=== PATIENT | female | born 1965 | race Caucasian/White ===

== ENCOUNTER 2016-06-20 09:15 | Inpatient (IN) | payer BC, OTHER ==
[2016-06-20] VITALS (10 sets, daily range): BP systolic 126–154; BP diastolic 76–94; PULSE 81–171; RESP 16–28; TEMP 98.3–99.2; O2SAT 97–100
[~2016-06-20] VITALS: Ht 162.6 cm; Wt 61.0 kg
[~2016-06-20 09:15] MED LIST: MEDR4PAK3 PO; PERM5CRE TOP
[2016-06-20] MEDS ORDERED: SODIUM CHLOR 0.9% 1000 ML INJ 1,000 ML IV SCH (09:36)
[2016-06-20] MEDS ORDERED: LORazepam 2 MG/ML VIAL IV PUSH ONE ×2 (09:45)
[2016-06-20] MEDS ORDERED: SODIUM CHLORIDE 0.9% FLUSH 10 ML FLUSH IV FLUSH PRN ×2 (09:45→13:45)
[2016-06-20] MEDS ORDERED: SODIUM CHLOR 0.9% 1000 ML INJ 1,000 ML IV ONE ×2 (09:45)
[2016-06-20] MEDS ORDERED: ONDANSETRON HCL 4 MG/2 ML VIAL IV PUSH ONE (09:45)
--- NOTE | 2016-06-20 10:05 | PD ---
HPI Chief Complaint: GI Complaint Time Seen by Provider: 09:33 Travel History International Travel<30 days: No Contact w/Intl Traveler<30days: No Traveled to known affect area: No History of Present Illness HPI Is a 51 year-old woman who presents to the emergency department complaining of nausea and vomiting for the past week. She is a history of daily alcohol use. Denies any history of withdrawal symptoms. She has had trouble with low potassium in the past as well as peptic ulcer disease. She states for the past year or so she's had trouble with intermittent episodes of nausea and vomiting. The sepsis or about a week ago. Progressively worse. She's had worsening vomiting, and inability to tolerate any by mouth. She does not really drinking liquids. She's cut back on her alcohol drinking significantly. Today she's had come to the emergency department. On the way she started getting clenching in her hands and clenching in her face with spasms. 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 She otherwise has been feeling generally 1 healthy before the onset of these symptoms. She states she does get some occasional abdominal pain when she's retching, mostly in epigastrium, but not otherwise. No other complaints. History Past Medical History Narrative Medical Peptic ulcer disease Low potassium Daily alcohol use Social History Alcohol Use: Yes (3-5 BEERS/DAY) Tobacco Use: Yes (1 ppd) Allergies-Medications (Allergen,Severity, Reaction): Coded Allergies: Augmentin (Verified Allergy, Severe, VOMITING, 06/20/16) Hydrocodone (Verified Allergy, Mild, 06/20/16) PREFERS NOT TO TAKE HYDROCODONE. NO REACTION ALLERGICALLY. Reported Meds & Prescriptions Reported Meds & Active Scripts Active Medrol Dosepak (Methylprednisolone) 4 Mg Donald 4 Mg PO DIRECTED TAKE DIRECTED Elimite (Permethrin) 5 % Cr 60 Gm TOP DIRECTED PATIENT INSTRUCTIONS: THOROUGHLY MASSAGE ELIMITE (PERMETHRIN) 5% CREAM INTO THE SKIN FROM HEAD TO TOE COVERING ALL EXTERNAL BODY PARTS. THE CREAM SHOULD BE REMOVED BY WASHING (SHOWER OR BATH) 8 TO 14 HOURS AFTER APPLICATION. PATIENTS MAY EXPERIENCE ITCHING AFTER TREATMENT AND IS RARELY A SIGN OF TREATMENT FAILURE. Review of Systems Except as stated in HPI: all other systems reviewed are Neg Physical Exam Narrative GENERAL: 51 year-old woman, generally well-appearing, no acute distress. SKIN: Focused skin assessment warm/dry. HEAD: Atraumatic. Normocephalic. EYES: Pupils equal and round. No scleral icterus. No injection or drainage. ENT: No nasal bleeding or discharge. Mucous membranes pink and moist. NECK: Trachea midline. No JVD. CARDIOVASCULAR: Heart rate rapid but regular. RESPIRATORY: No accessory muscle use. Clear to auscultation. Breath sounds equal bilaterally. GASTROINTESTINAL: Abdomen is flat and soft. There is no real tenderness or gross to deep palpation. MUSCULOSKELETAL: No obvious deformities. She keeps her hands clenched and the rest of her extremities are not really flexed are contracted. NEUROLOGICAL: Awake and alert. No obvious cranial nerve deficits. Motor grossly within normal limits. Normal speech. PSYCHIATRIC: Appropriate mood and affect; insight and judgment normal. Data Data Last Documented VS Vital Signs Date Time Temp Pulse Resp B/P Pulse Ox O2 Delivery O2 Flow Rate FiO2 06/20/16 12:08 103 16 140/79 98 Room Air Orders Complete Blood Count With Diff (06/20/16 09:36) Comprehensive Metabolic Panel (06/20/16 09:36) Lipase (06/20/16 09:36) Lactic Acid (06/20/16 09:36) Prothrombin Time / Inr (Pt) (06/20/16 09:36) Act Partial Throm Time (Ptt) (06/20/16 09:36) Urinalysis - C+S If Indicated (06/20/16 09:36) Iv Access Insert/Monitor (06/20/16 09:36) Ecg Monitoring (06/20/16 09:36) Oximetry (06/20/16 09:36) Sodium Chlor 0.9% 1000 Ml Inj (Ns 1000 M (06/20/16 09:36) Sodium Chloride 0.9% Flush (Ns Flush) (06/20/16 09:45) Magnesium (Mg) (06/20/16 09:36) Sodium Chlor 0.9% 1000 Ml Inj (Ns 1000 M (06/20/16 09:45) Sodium Chlor 0.9% 1000 Ml Inj (Ns 1000 M (06/20/16 09:45) Lorazepam Inj (Ativan Inj) (06/20/16 09:45) Ondansetron Inj (Zofran Inj) (06/20/16 09:45) Beta Hydroxybutyrate (Acetone) (06/20/16 09:36) Lorazepam Inj (Ativan Inj) (06/20/16 09:45) Ct Abd/Pel W Iv Contrast(Rout) (06/20/16 ) Iohexol 350 Inj (Omnipaque 350 Inj) (06/20/16 11:47) Us Abdomen Gallbladder (06/20/16 ) Admit Order (Ed Use Only) (06/20/16 ) Labs Laboratory Tests Test 06/20/16 09:48 White Blood Count 7.4 TH/MM3 Red Blood Count 3.68 MIL/MM3 Hemoglobin 13.0 GM/DL Hematocrit 37.8 % Mean Corpuscular Volume 102.8 FL Mean Corpuscular Hemoglobin 35.4 PG Mean Corpuscular Hemoglobin 34.4 % Concent Red Cell Distribution Width 14.4 % Platelet Count 205 TH/MM3 Mean Platelet Volume 9.6 FL Neutrophils (%) (Auto) 49.8 % Lymphocytes (%) (Auto) 43.6 % Monocytes (%) (Auto) 5.9 % Eosinophils (%) (Auto) 0.1 % Basophils (%) (Auto) 0.6 % Neutrophils # (Auto) 3.7 TH/MM3 Lymphocytes # (Auto) 3.2 TH/MM3 Monocytes # (Auto) 0.4 TH/MM3 Eosinophils # (Auto) 0.0 TH/MM3 Basophils # (Auto) 0.0 TH/MM3 CBC Comment DIFF FINAL Differential Comment Prothrombin Time 12.1 SEC Prothromb Time International 1.1 RATIO Ratio Activated Partial 25.0 SEC Thromboplast Time Sodium Level 134 MEQ/L Potassium Level 3.4 MEQ/L Chloride Level 97 MEQ/L Carbon Dioxide Level 17.4 MEQ/L Anion Gap 20 MEQ/L Blood Urea Nitrogen 13 MG/DL Creatinine 1.03 MG/DL Estimat Glomerular Filtration 57 ML/MIN Rate Random Glucose 182 MG/DL Lactic Acid Level 7.5 mmol/L Calcium Level 8.3 MG/DL Magnesium Level 1.0 MG/DL Total Bilirubin 1.5 MG/DL Aspartate Amino Transf 506 U/L (AST/SGOT) Alanine Aminotransferase 218 U/L (ALT/SGPT) Alkaline Phosphatase 378 U/L Total Protein 8.1 GM/DL Albumin 3.6 GM/DL Lipase 82 U/L B-Hydroxybutyrate 0.50 MMOL/L MDM Medical Decision Making Medical Screen Exam Complete: Yes Emergency Medical Condition: Yes Interpretation(s) LABS: CBC remarkable for elevated MCV. CMP remarkable for mildly low potassium, low bicarbonate, anion gap of 20, elevated creatinine, elevated liver enzymes, magnesium of 1.0 Coags unremarkable beta hydroxybutyrate. 0.5 CT abdomen and pelvis: No acute findings. Differential Diagnosis Gastritis, pancreatitis, alcoholic ketoacidosis, alcohol withdrawal, cholecystitis, other Narrative Course Medical decision making INITIAL: 51 year-old woman who presents to the emergency department complaining of nausea vomiting, with rapid heart rate and cleansed hands likely electrolyte abnormality possibly related to AKA, alcohol withdrawal, dehydration. We'll check labs, IV fluid rehydration, reassess. Likely need admission. FINAL: Patient with severe dehydration, lactic acidosis. CT scan shows severe hepatic steatosis. This likely related to alcoholism. Is likely isolation for elevated labs. We'll check liver ultrasound. We'll admit. Diagnosis Primary Impression: Dehydration Additional Impression: Lactic acidosis Beau Austin MD Jun 20, 2016 10:05
[2016-06-20 10:09] LABS: AUTOMATED NEUTROPHIL # 3.7 TH/MM3 (1.8-7.7); BASOPHIL % 0.6 % (0.0-2.0); EOSINOPHIL % 0.1 % (0.0-4.0); HEMATOCRIT 37.8 % (35.0-46.0); HEMO FLAGS DIFF FINAL; LYMPH % 43.6 % (9.0-44.0); LYMPHOCYTE # 3.2 TH/MM3 (1.0-4.8); MEAN CELL VOLUME 102.8 FL (80.0-100.0); MEAN CORPUSCULAR HEMOGLOBIN 35.4 PG (27.0-34.0); MEAN CORPUSCULAR HGB CONC 34.4 % (32.0-36.0); MONO % 5.9 % (0.0-8.0); NEUT % 49.8 % (16.0-70.0); PLATELET COUNT 205 TH/MM3 (150-450); RED BLOOD COUNT 3.68 MIL/MM3 (4.00-5.30); RED CELL DISTRIBUTION WIDTH 14.4 % (11.6-17.2); WHITE BLOOD COUNT 7.4 TH/MM3 (4.0-11.0)
[2016-06-20 10:18] LABS: INTERNATIONAL NORMALIZED RATIO 1.1 RATIO; PROTHROMBIN TIME - PATIENT 12.1 SEC (9.8-11.6)
[2016-06-20 10:28] LABS: ALKALINE PHOSPHATASE 378 U/L (45-117); TOTAL BILIRUBIN ADULT 1.5 MG/DL (0.2-1.0)
[2016-06-20 10:33] LABS: ALT (GPT) 218 U/L (10-53); ANION GAP 20 MEQ/L (5-15); BICARBONATE 17.4 MEQ/L (21.0-32.0); BLOOD UREA NITROGEN 13 MG/DL (7-18); CHLORIDE 97 MEQ/L (98-107); GLOMERULAR FILTRATION RATE 57 ML/MIN (>89); SODIUM (NA) 134 MEQ/L (136-145)
[2016-06-20 10:35] LABS: AST (GOT) 506 U/L (15-37); POTASSIUM 3.4 MEQ/L (3.5-5.1)
[2016-06-20] MEDS ORDERED: IOHEXOL 350 MG/ML 10 ML VIAL (for RAD DIAG) IV ONE (11:47)
--- NOTE | 2016-06-20 12:46 | HHI.HP ---
HPI Service Family Medicine Attending: Dr. Campbell PGY-2: Dr. Cerda PGY-1: Dr. Moreland Primary Care Physician No Primary Care Physician Admission Diagnosis Diagnoses: (1) Dehydration (2) Lactic acidosis (3) Alcohol abuse Chief Complaint: nausea, vomiting International Travel<30 Days: No Contact w/Intl Traveler<30days: No Known Affected Area: No History of Present Illness Patient is a 51 year old female with history of alcohol use who presents to ED for evaluation of nausea and vomiting for the past 2 weeks. She reports that symptoms started suddenly 2 weeks ago and has progressively gotten worse. She has not been able to keep down anything including liquids. She had up to 20 episodes of bilious emesis yesterday. Still has good urine output. However she has not had a BM for the past week. Today, she developed severe cramps in both her hands and calves which prompted her to go to the ED. Both of her hands were clenched and contracted prior to ED arrival. They are better now since she received the IV fluids. No associated abdominal pain, diarrhea, urinary symptoms, rash, or other symptoms. Of note, she reports having similar symptoms about a year ago. She had an EGD and colonoscopy at [facility] and was told she had a peptic ulcer. She did not follow up with anyone after that hospitalization. She does not take any PPI or antacid. In addition, she does have a significant history of alcohol use. She drinks one shot of Fireball and 1-2 beers almost every night for the past 6 months. Last drink was a couple of nights ago. She denies any history of withdrawals. (Rowan Courtney MD R3) Past Family Social History Past Medical History Peptic ulcer disease Past Surgical History Total hysterectomy Reported Medications Medrol Dosepak (Methylprednisolone) 4 Mg Donald 4 Mg PO DIRECTED Elimite (Permethrin) 5 % Cr 60 Gm TOP DIRECTED PATIENT INSTRUCTIONS: THOROUGHLY MASSAGE ELIMITE (PERMETHRIN) 5% CREAM INTO THE SKIN FROM HEAD TO TOE COVERING ALL EXTERNAL BODY PARTS. THE CREAM SHOULD BE REMOVED BY WASHING (SHOWER OR BATH) 8 TO 14 HOURS AFTER APPLICATION. PATIENTS MAY EXPERIENCE ITCHING AFTER TREATMENT AND IS RARELY A SIGN OF TREATMENT FAILURE. (Rowan Courtney MD R3) Allergies: Coded Allergies: Augmentin (Verified Allergy, Severe, VOMITING, 06/20/16) Hydrocodone (Verified Allergy, Mild, 06/20/16) PREFERS NOT TO TAKE HYDROCODONE. NO REACTION ALLERGICALLY. Family History Mother: from lung cancer Father: from brain cancer Social History Drinks one shot of Fireball and 1-2 beers most nights. Smokes 1 ppd x 20 year Denies illicit or history of IV drug use (Rowan Courtney MD R3) Physical Exam Vital Signs Vital Signs Date Time Temp Pulse Resp B/P Pulse Ox O2 Delivery O2 Flow Rate FiO2 06/20/16 12:08 103 16 140/79 98 Room Air 06/20/16 10:33 101 16 142/94 98 Room Air 06/20/16 10:04 120 18 154/94 98 Room Air 06/20/16 10:04 125 16 154/94 98 Room Air 06/20/16 09:23 171 28 148/80 Physical Exam GENERAL: This is a well-nourished, well-developed female in no apparent distress. SKIN: No rashes, ecchymoses or lesions. Dry mucous membranes. HEAD: Atraumatic. Normocephalic. No temporal or scalp tenderness. EYES: Pupils equal round and reactive. Extraocular motions intact. No scleral icterus. No injection or drainage. ENT: Nose without bleeding, purulent drainage or septal hematoma. Throat without erythema, tonsillar hypertrophy or exudate. Uvula midline. Airway patent. NECK: Trachea midline. No JVD or lymphadenopathy. Supple. CARDIOVASCULAR: Tachycardiac, HR 100s but regular rhythm. No murmurs, gallops, or rubs. RESPIRATORY: Clear to auscultation. Breath sounds equal bilaterally. No wheezes , rales, or rhonchi. GASTROINTESTINAL: Abdomen soft, non-tender, nondistended. No hepato-splenomegaly , or palpable masses. No guarding. Active bowel sounds. MUSCULOSKELETAL: Extremities without clubbing, cyanosis, or edema. No joint tenderness, effusion, or edema noted. No calf tenderness. Move all extremities well. Hand contractures have resolved. NEUROLOGICAL: Awake, alert, and oriented x 3. Cranial nerves II through XII intact. Motor and sensory grossly within normal limits. Five out of 5 muscle strength in all muscle groups. Normal speech. No agitation noted. No tremors. Laboratory Laboratory Tests Test 06/20/16 09:48 White Blood Count 7.4 Red Blood Count 3.68 Hemoglobin 13.0 Hematocrit 37.8 Mean Corpuscular Volume 102.8 Mean Corpuscular Hemoglobin 35.4 Mean Corpuscular Hemoglobin 34.4 Concent Red Cell Distribution Width 14.4 Platelet Count 205 Mean Platelet Volume 9.6 Neutrophils (%) (Auto) 49.8 Lymphocytes (%) (Auto) 43.6 Monocytes (%) (Auto) 5.9 Eosinophils (%) (Auto) 0.1 Basophils (%) (Auto) 0.6 Neutrophils # (Auto) 3.7 Lymphocytes # (Auto) 3.2 Monocytes # (Auto) 0.4 Eosinophils # (Auto) 0.0 Basophils # (Auto) 0.0 CBC Comment DIFF FINAL Differential Comment Prothrombin Time 12.1 Prothromb Time International 1.1 Ratio Activated Partial 25.0 Thromboplast Time Sodium Level 134 Potassium Level 3.4 Chloride Level 97 Carbon Dioxide Level 17.4 Anion Gap 20 Blood Urea Nitrogen 13 Creatinine 1.03 Estimat Glomerular Filtration 57 Rate Random Glucose 182 Lactic Acid Level 7.5 Calcium Level 8.3 Magnesium Level 1.0 Total Bilirubin 1.5 Aspartate Amino Transf 506 (AST/SGOT) Alanine Aminotransferase 218 (ALT/SGPT) Alkaline Phosphatase 378 Total Protein 8.1 Albumin 3.6 Lipase 82 B-Hydroxybutyrate 0.50 (Rowan Courtney MD R3) Result Diagram: 06/20/16 0948 06/20/16 0948 Imaging Abdomen/Pelvis CT 06/20/16 0000 Signed Impressions: Service Date/Time: Monday, June 20, 2016 11:34 - CONCLUSION: No acute findings. Mild sigmoid diverticula without radiographic evidence of diverticulitis. Stable severe steatosis the liver Antwan Robertson MD (Rowan Courtney MD R3) Assessment and Plan Assessment and Plan Patient is a 51 year old female with history of alcohol use who presents to ED for evaluation of nausea and vomiting for the past 2 weeks. Code Status DNR Discussed Condition With w/d/w Dr. Campbell and medicine team (Rowan Courtney MD R3) Attending Attestation Patient seen and examined. Case reviewed and discussed with the resident team. Agree with plan of care as discussed with me and documented in the resident note. (Dianne Campbell MD) Problem List: (1) Dehydration Status: Resolved Plan: Patient presents with persistent nausea and vomiting x 2 weeks as well as associated muscle cramps. Unable to tolerate oral intake. Etiology unclear. She was tachycardic with inital HR up to 170s. Tachycardia has improved to low 100s. Other vital signs stable. -Work up in ED is remarkable for mild MEG with creatinine of 1.03, acute transaminitis (AST 506, ALT 218, ALK phos 378, and T.B 1.5), electrolyte abnormalities (sodium 134, potassium 3.4, magnesium 1, chloride 97). She was also found to have a significant lactic acidosis of 7.5. Lipase was within normal limits. No leukocytosis. -CT abdomen/pelvic was overall unremarkable except for severe liver steatosis and mild sigmoid diverticula. There was no acute findings. -She was given 5 L of NS in the ED as well as 2 grams of Magnesium sulfate. Plan: -Will continue NS at maintenance rate of 100cc/hr -Encourage oral fluid hydration -Zofran IV prn nausea/vomiting -UA pending -GB ultrasound pending -Repeat CMP in AM (2) Lactic acidosis Status: Acute Plan: Likely secondary to dehydration vs. alcoholic lactic acidosis. Beta- hydroxybutyrate mildly elevated at 0.50. -See plan above -Continue aggressive hydration -Monitor for evidence of infection -Repeat lactic acid level (3) Transaminitis Status: Acute Plan: Likely related to dehydration as well as alcoholic hepatitis. CT shows severe steatosis. -Continue IVFs -Monitor LFTs -Check hepatitis profile -Avoid hepatotoxic agents (4) Alcohol abuse Status: Chronic Plan: Patient with significant alcohol abuse -[facility] protocol -Monitor for seizures/withdrawals -Cessation advised (5) Tobacco abuse Status: Chronic Plan: -Smoking cessation advised -Nicotine patch (6) Nutrition, metabolism, and development symptoms Status: Acute Plan: Electrolytes: K 3.4 and Mg 1; Replete as needed Diet: Will start with liquid diet given history of nausea/vomiting. Advance as tolerated Fluids: NS at 100cc/hr DVT: Heparin 5000 units SQ BID GI ppx given history of PUD and alcohol use: Protonix 40mg po daily (Rowan Courtney MD R3) Physician Certification 2 Midnight Certification Type: Admission for Inpatient Services Order for Inpatient Services The services are ordered in accordance with Medicare regulations or non- Medicare payer requirements, as applicable. In the case of services not specified as inpatient-only, they are appropriately provided as inpatient services in accordance with the 2-midnight benchmark. Estimated LOS (days): 2 2 days is the estimated time the patient will need to remain in the hospital, assuming treatment plan goals are met and no additional complications. Post-Hospital Plan: Home (Rowan Courtney MD R3) Rowan Courtney MD R3 Jun 20, 2016 12:46 Dianne Campbell MD Jun 23, 2016 12:41
--- NOTE | 2016-06-20 12:54 | RADRPT ---
EXAM DATE/TIME: 06/20/2016 11:34 [facility] COMPARISON: CT ABDOMEN & PELVIS W CONTRAST, October 09, 2015, 15:28. INDICATIONS : Abdomen pain IV CONTRAST: 100 cc Omnipaque 350 (iohexol) IV ORAL CONTRAST: No oral contrast ingested. RADIATION DOSE: 5.51 CTDIvol (mGy) MEDICAL HISTORY : Cervical CA SURGICAL HISTORY : Hysterectomy. ENCOUNTER: Initial ACUITY: 1 day PAIN SCALE: 5/10 LOCATION: TECHNIQUE: Volumetric scanning of the abdomen and pelvis was performed. Using automated exposure control and ad justment of the mA and/or kV according to patient size, radiation dose was kept as low as reasonably achievable to obtain optimal diagnostic quality images. FINDINGS: LOWER LUNGS: The visualized lower lungs are clear. LIVER: Severe steatosis the liver, similar to prior. No focal lesion. There is no dilation of the biliary tree. No calcified gallstones. SPLEEN: Normal size without lesion. PANCREAS: Within normal limits. KIDNEYS: Normal in size and shape. There is no mass, stone or hydronephrosis. ADRENAL GLANDS: Within normal limits. VASCULAR: There is no aortic aneurysm. BOWEL/MESENTERY: No dilated loops of small or large bowel. The appendix is identified in the right lower quadrant ext ending into the pelvis and has a normal size. There are a few small diverticula in the sigmoid witho ut evidence of diverticulitis. No evidence free fluid in the pelvis. ABDOMINAL WALL: Within normal limits. RETROPERITONEUM: There is no lymphadenopathy. BLADDER: No wall thickening or mass. REPRODUCTIVE: Within normal limits. INGUINAL: There is no lymphadenopathy or hernia. MUSCULOSKELETAL: Within normal limits for patient age. CONCLUSION: No acute findings. Mild sigmoid diverticula without radiographic evidence of diverticulitis. Stable severe steatosis the liver Antwan Robertson MD on June 20, 2016 at 12:37 Board Certified Radiologist. This report was verified electronically.
[2016-06-20] MEDS ORDERED: NALOXONE HCL 0.4 MG/ML AMP IV PRN (13:45)
[2016-06-20] MEDS ORDERED: LORazepam 2 MG/ML VIAL IV PUSH PRN ×4 (13:45)
[2016-06-20] MEDS ORDERED: POTASSIUM CHLORIDE 20 MEQ CONTROLLED RELEASE TAB PO ONE (13:45)
[2016-06-20] MEDS ORDERED: LORazepam 2 MG TAB PO PRN (13:45)
[2016-06-20] MEDS ORDERED: FLUMAZENIL 0.5 MG/5 ML VIAL IV PUSH PRN (13:45)
[2016-06-20] MEDS ORDERED: BISACODYL 10 MG SUPP RECTAL PRN (13:45)
[2016-06-20] MEDS ORDERED: ONDANSETRON HCL 4 MG/2 ML VIAL IVP PRN (13:45)
[2016-06-20] MEDS: HEPARIN SODIUM - SQ 10,000 UNITS/ML VIAL SQ SCH (14:04)
[2016-06-20] MEDS: MAGNESIUM SULFATE 1 GM PREMIX 100 ML IV SCH ×2 (14:05→16:03)
[2016-06-20] MEDS: SODIUM CHLOR 0.9% 1000 ML INJ 1,000 ML IV SCH ×2 (14:32→16:04)
[2016-06-20] MEDS: PANTOPRAZOLE SOD 40 MG DELAYED RELEASE TAB PO SCH (16:03)
--- NOTE | 2016-06-20 16:38 | RADRPT ---
EXAM DATE/TIME: 06/20/2016 15:22 [facility] COMPARISON: US ABDOMEN - GALLBLADDER, September 19, 2013, 15:04. INDICATIONS : Nausea/vomiting. MEDICAL HISTORY : Cervical cancer. Nausea/vomiting. SURGICAL HISTORY : Hysterectomy. ENCOUNTER: Initial ACUITY: 4-6 days PAIN SCORE: 0/10 LOCATION: Right upper quadrant MEASUREMENTS: LIVER: 17.5 cm length COMMON DUCT: 3 mm RIGHT KIDNEY: 11.3 x 5.9 x 4.5 cm FINDINGS: LIVER: Normal echotexture without focal lesion or ductal dilatation. Hepatopedal flow seen in the portal ve in. There is a small amount of free fluid along the anterior free edge of the liver. COMMON DUCT: No intraluminal mass or stone visualized. GALLBLADDER: Contains no stones, demonstrates no wall thickening or pericholecystic fluid. PANCREAS: The visualized portions are within normal limits. RIGHT KIDNEY: No evidence of hydronephrosis, stone, or mass. CONCLUSION: 1. Small amount of free fluid adjacent to the liver. 2. No gallstones seen. Antwan Robertson MD on June 20, 2016 at 16:34 Board Certified Radiologist. This report was verified electronically.
[2016-06-20] MEDS: SODIUM CHLORIDE 0.9% FLUSH 10 ML FLUSH IV FLUSH SCH (21:00)
[2016-06-20 21:05] LABS: BLOOD, URINE NEG (NEG); GLUCOSE,URINE NEG (NEG); KETONE, URINE TRACE mg/dL (NEG); NITRITE,URINE NEG (NEG); SQUAMOUS EPITHELIAL CELL URINE 1 /hpf (0-5); URINE COLOR YELLOW (YELLW/STRAW)
[2016-06-20 21:17] LABS: COMMENT (UR) CULT NOT INDICATED; CULTURE IF INDICATED CULT NOT INDICATED
[2016-06-21] VITALS (10 sets, daily range): BP systolic 120–168; BP diastolic 70–90; PULSE 69–87; RESP 16–20; TEMP 96.8–99.1; O2SAT 92–99
[2016-06-21] MEDS: HEPARIN SODIUM - SQ 10,000 UNITS/ML VIAL SQ SCH ×2 (01:27→16:31)
[2016-06-21 07:18] LABS: AUTOMATED NEUTROPHIL # 2.5 TH/MM3 (1.8-7.7); BASOPHIL % 0.5 % (0.0-2.0); EOSINOPHIL % 0.8 % (0.0-4.0); HEMATOCRIT 31.2 % (35.0-46.0); LYMPH % 46.9 % (9.0-44.0); LYMPHOCYTE # 2.5 TH/MM3 (1.0-4.8); MEAN CELL VOLUME 103.9 FL (80.0-100.0); MEAN CORPUSCULAR HEMOGLOBIN 35.2 PG (27.0-34.0); MEAN CORPUSCULAR HGB CONC 33.9 % (32.0-36.0); MONO % 5.3 % (0.0-8.0); NEUT % 46.5 % (16.0-70.0); PLATELET COUNT 99 TH/MM3 (150-450); RED CELL DISTRIBUTION WIDTH 14.1 % (11.6-17.2); WHITE BLOOD COUNT 5.3 TH/MM3 (4.0-11.0)
[2016-06-21 07:54] LABS: BICARBONATE 24.7 MEQ/L (21.0-32.0); TOTAL BILIRUBIN ADULT 1.9 MG/DL (0.2-1.0)
[2016-06-21 08:02] LABS: CALCIUM-PROTEIN CORRECTED 7.4 MG/DL (8.5-10.1); POTASSIUM 2.6 MEQ/L (3.5-5.1)
[2016-06-21 08:05] LABS: HEMO FLAGS AUTO DIFF
[2016-06-21 08:09] LABS: PLATELET ESTIMATE SMEAR LOW (NORMAL); PLATELET MORPHOLOGY NORMAL (NORMAL); SCAN/DIFF AUTO DIFF CONFIRMED; TARGET CELLS 1+ (NORMAL)
--- NOTE | 2016-06-21 08:53 | HHI.HP ---
[facility] Service Family Medicine Primary Care Physician No Primary Care Physician Admission Diagnosis Diagnoses: (1) Dehydration Diagnosis: Principal (2) Lactic acidosis Diagnosis: Principal (3) Transaminitis Diagnosis: Principal (4) Alcohol abuse Diagnosis: Principal (5) Tobacco abuse Diagnosis: Principal (6) Nutrition, metabolism, and development symptoms Diagnosis: Principal International Travel<30 Days: No Contact w/Intl Traveler<30days: No Known Affected Area: No History of Present Illness Ms Purcell is a 51 year old female with history of alcohol use and peptic ulcer who presented to ED for evaluation of nausea and vomiting for the past 2 weeks. She reports that symptoms started suddenly 2 weeks ago and have progressively gotten worse. She has not been able to keep down anything including liquids. She had up to 20 episodes of bilious emesis the day prior to admission. Still has good urine output. However she has not had a BM for the past week. Today, she developed severe cramps in both her hands and calves which prompted her to go to the ED. Both of her hands were clenched and contracted prior to ED arrival. They are better now since she received the IV fluids. No associated abdominal pain, diarrhea, urinary symptoms, rash, or other symptoms. Of note, she reports having similar symptoms about a year ago. She had an EGD and colonoscopy at [facility] and was told she had a peptic ulcer. She did not follow up with anyone after that hospitalization. She does not take any PPI or antacid. In addition, she does have a significant history of alcohol use. She drinks one shot of Fireball and 1-2 beers almost every night for the past 6 months. Last drink was a couple of nights ago. She denies any history of withdrawals. She was asked about seeing GI here but declined as she had scoping about a year ago. We discussed her LFTs being up and she was advised not to take tylenol especially to excess and also alcohol as she has steatorrhea and her elevated LFTs or an acute hepatitis could be giving her the nausea and vomiting. Her hepatitis panel is pending. She feel much improved over her weakness and tetany/muscle cramping yesterday but still has multiple electrolyte abnormalities as well as the high LFTs where the AST is very much higher than the ALT. She has not been able to eat normal meals as of yet but is improving her po intake overall compared to before her hospitalization. Review of Systems Other GENERAL: This is a well-nourished, well-developed female in no apparent distress at this time. SKIN: No rashes, ecchymoses or lesions. Dry mucous membranes initially. HEAD: Atraumatic. Normocephalic. No temporal or scalp tenderness. EYES: Pupils equal round and reactive. Extraocular motions intact. No scleral icterus. No injection or drainage. ENT: Nose without bleeding, purulent drainage or septal hematoma. Airway patent. NECK: Trachea midline. No JVD or lymphadenopathy. Supple. CARDIOVASCULAR: Tachycardiac, HR 100s but regular rhythm. No murmurs, gallops, or rubs. RESPIRATORY: Clear to auscultation. Breath sounds equal bilaterally. No wheezes , rales, or rhonchi. GASTROINTESTINAL: Abdomen soft, non-tender, nondistended. No hepato-splenomegaly , or palpable masses. No guarding. Active bowel sounds. MUSCULOSKELETAL: Extremities without clubbing, cyanosis, or edema. No joint tenderness, effusion, or edema noted. No calf tenderness. Move all extremities well. Hand contractures have resolved. NEUROLOGICAL: Awake, alert, and oriented x 3. Cranial nerves II through XII intact. Motor and sensory grossly within normal limits. Five out of 5 muscle strength in all muscle groups. Normal speech. No agitation noted. No tremors. Past Family Social History Past Medical History Peptic ulcer disease Past Surgical History Total hysterectomy Allergies: Coded Allergies: Augmentin (Verified Allergy, Severe, VOMITING, 06/20/16) Hydrocodone (Verified Allergy, Mild, 06/20/16) PREFERS NOT TO TAKE HYDROCODONE. NO REACTION ALLERGICALLY. Family History Mother: from lung cancer Father: from brain cancer Social History Drinks one shot of Fireball and 1-2 beers most nights. Smokes 1 ppd x 20 year Denies illicit or history of IV drug use Physical Exam Vital Signs Vital Signs Date Time Temp Pulse Resp B/P Pulse Ox O2 Delivery O2 Flow Rate FiO2 06/21/16 08:20 97 21 06/21/16 04:14 96.8 74 16 121/87 92 06/21/16 01:34 98.5 77 16 168/84 93 06/20/16 22:01 98 21 06/20/16 21:57 98.9 81 16 142/79 98 06/20/16 16:00 99.2 91 18 126/91 99 06/20/16 15:03 98.3 99 18 132/76 100 Room Air 06/20/16 14:10 106 18 141/89 98 Room Air 06/20/16 13:49 97 21 06/20/16 12:08 103 16 140/79 98 Room Air 06/20/16 10:33 101 16 142/94 98 Room Air 06/20/16 10:04 98.3 120 18 154/94 98 Room Air 06/20/16 10:04 125 16 154/94 98 Room Air 06/20/16 09:23 171 28 148/80 Physical Exam GENERAL: This is a well-nourished, well-developed patient, in no apparent distress. SKIN: No rashes, ecchymoses or lesions. Cool and dry. HEAD: Atraumatic. Normocephalic. No temporal or scalp tenderness. EYES: Pupils equal round and reactive. Extraocular motions intact. No scleral icterus. No injection or drainage. ENT: Nose without bleeding, purulent drainage or septal hematoma. Throat without erythema, tonsillar hypertrophy or exudate. Uvula midline. Airway patent. NECK: Trachea midline. No JVD or lymphadenopathy. Supple, nontender, no meningeal signs. CARDIOVASCULAR: Regular rate and rhythm without murmurs, gallops, or rubs. RESPIRATORY: Clear to auscultation. Breath sounds equal bilaterally. No wheezes , rales, or rhonchi. GASTROINTESTINAL: Abdomen soft, non-tender, nondistended. No hepato-splenomegaly , or palpable masses. No guarding. MUSCULOSKELETAL: Extremities without clubbing, cyanosis, or edema. No joint tenderness, effusion, or edema noted. No calf tenderness. Negative Homans sign bilaterally. NEUROLOGICAL: Awake and alert. Cranial nerves II through XII intact. Motor and sensory grossly within normal limits. Five out of 5 muscle strength in all muscle groups. Normal speech. Laboratory Laboratory Tests Test 06/20/16 06/20/16 06/20/16 06/21/16 09:48 19:53 20:00 06:01 White Blood Count 7.4 5.3 Red Blood Count 3.68 3.00 Hemoglobin 13.0 10.6 Hematocrit 37.8 31.2 Mean Corpuscular Volume 102.8 103.9 Mean Corpuscular Hemoglobin 35.4 35.2 Mean Corpuscular Hemoglobin 34.4 33.9 Concent Red Cell Distribution Width 14.4 14.1 Platelet Count 205 99 Mean Platelet Volume 9.6 10.0 Neutrophils (%) (Auto) 49.8 46.5 Lymphocytes (%) (Auto) 43.6 46.9 Monocytes (%) (Auto) 5.9 5.3 Eosinophils (%) (Auto) 0.1 0.8 Basophils (%) (Auto) 0.6 0.5 Neutrophils # (Auto) 3.7 2.5 Lymphocytes # (Auto) 3.2 2.5 Monocytes # (Auto) 0.4 0.3 Eosinophils # (Auto) 0.0 0.0 Basophils # (Auto) 0.0 0.0 CBC Comment DIFF FINAL AUTO DIFF Differential Comment AUTO DIFF CONFIRMED Prothrombin Time 12.1 Prothromb Time International 1.1 Ratio Activated Partial 25.0 Thromboplast Time Sodium Level 134 138 Potassium Level 3.4 2.6 Chloride Level 97 103 Carbon Dioxide Level 17.4 24.7 Anion Gap 20 10 Blood Urea Nitrogen 13 3 Creatinine 1.03 0.42 Estimat Glomerular Filtration 57 160 Rate Random Glucose 182 79 Lactic Acid Level 7.5 0.5 Calcium Level 8.3 6.9 Magnesium Level 1.0 Total Bilirubin 1.5 1.9 Aspartate Amino Transf 506 517 (AST/SGOT) Alanine Aminotransferase 218 172 (ALT/SGPT) Alkaline Phosphatase 378 299 Total Creatine Kinase 116 Total Protein 8.1 6.2 Albumin 3.6 2.6 Lipase 82 Ethyl Alcohol Level LESS THAN 3 B-Hydroxybutyrate 0.50 Urine Color YELLOW Urine Turbidity CLEAR Urine pH 8.0 Urine Specific [place] 1.025 Urine Protein NEG Urine Glucose (UA) NEG Urine Ketones TRACE Urine Occult Blood NEG Urine Nitrite NEG Urine Bilirubin NEG Urine Urobilinogen 2.0 Urine Leukocyte Esterase NEG Urine RBC LESS THAN 1 Urine WBC 1 Urine Squamous Epithelial 1 Cells Microscopic Urinalysis Comment CULT NOT INDICATED Platelet Estimate LOW Platelet Morphology Comment NORMAL Target Cells 1+ Protein Corrected Calcium 7.4 Result Diagram: 06/21/16 0601 06/21/16 0601 Imaging Abdomen/Pelvis CT 06/20/16 0000 Signed Impressions: Service Date/Time: Monday, June 20, 2016 11:34 - CONCLUSION: No acute findings. Mild sigmoid diverticula without radiographic evidence of diverticulitis. Stable severe steatosis the liver Antwan Robertson MD Assessment and Plan Assessment and Plan Patient is a 51 year old female with history of alcohol use who presents to ED for evaluation of nausea and vomiting for the past 2 weeks. Problem List: (1) Dehydration Status: Acute Plan: Patient presented with persistent nausea and vomiting x 2 weeks as well as associated muscle cramps. Unable to tolerate oral intake. Etiology unclear. She was tachycardic with inital HR up to 170s. Tachycardia has improved to low 100s. Other vital signs stable. -Work up in ED is remarkable for mild MEG with creatinine of 1.03, acute transaminitis (AST 506, ALT 218, ALK phos 378, and T.B 1.5) with normal LFTs a year ago, electrolyte abnormalities (sodium 134, potassium 3.4, magnesium 1, chloride 97). She was also found to have a significant lactic acidosis of 7.5. Lipase was within normal limits. No leukocytosis. -CT abdomen/pelvic was overall unremarkable except for severe liver steatosis and mild sigmoid diverticula. There was no acute findings. -She was given 5 L of NS in the ED as well as 4 grams of Magnesium sulfate. Plan: -Will continue NS at maintenance rate of 100cc/hr -Encourage oral fluid hydration -Zofran IV prn nausea/vomiting -UA fine -GB ultrasound normal -Repeated CMP in AM and she still has multiple electrolyte abnormalities her dehydration has improved but she cannot eat normally and has low calcium, K , phos, etc unsure if this is all from not eating for 2 weeks or other etiology. will see if simple replacement and better po intake resolve the problem and if not can pursue a renal/endocrine/GI workup however pt wants to avoid any unnecessary workup at this time (2) Lactic acidosis Status: Acute Plan: Likely secondary to dehydration vs. alcoholic lactic acidosis. Beta- hydroxybutyrate mildly elevated at 0.50. Lactic acid normal this am -See plan above -Continue aggressive hydration -Monitor for evidence of infection -Repeat lactic acid level (3) Transaminitis Status: Acute Plan: Likely related to dehydration as well as alcoholic hepatitis. CT shows severe steatosis. -Continue IVFs -Monitor LFTs -Check hepatitis profile -Avoid hepatotoxic agents. pt advised no Tylenol in excess or alcohol as she could severely damage her liver. Her AST being more elevated than ALT is suggestive of liver damage from alcohol (4) Alcohol abuse Status: Chronic Plan: Patient with significant alcohol abuse -CIWA protocol/rally pack -Monitor for seizures/withdrawals -Cessation advised (5) Tobacco abuse Status: Chronic Plan: -Smoking cessation advised -Nicotine patch (6) Nutrition, metabolism, and development symptoms Status: Acute Plan: Electrolytes: K 3.4 and Mg 1 on admission and still low today; Replete as needed Diet: Will start with liquid diet given history of nausea/vomiting. Advance as tolerated Fluids: NS at 100cc/hr DVT: Heparin 5000 units SQ BID GI ppx given history of PUD and alcohol use: Protonix 40mg po daily Physician Certification 2 Midnight Certification Type: Admission for Inpatient Services Order for Inpatient Services The services are ordered in accordance with Medicare regulations or non- Medicare payer requirements, as applicable. In the case of services not specified as inpatient-only, they are appropriately provided as inpatient services in accordance with the 2-midnight benchmark. Estimated LOS (days): 3 3 days is the estimated time the patient will need to remain in the hospital, assuming treatment plan goals are met and no additional complications. Post-Hospital Plan: Home Dianne Campbell MD Jun 21, 2016 08:53
[2016-06-21] MEDS: SODIUM CHLORIDE 0.9% FLUSH 10 ML FLUSH IV FLUSH SCH ×2 (09:10→19:41)
[2016-06-21] MEDS: LORazepam 1 MG TAB PO PRN ×3 (09:19→23:26)
[2016-06-21] MEDS: PANTOPRAZOLE SOD 40 MG DELAYED RELEASE TAB PO SCH (09:19)
[2016-06-21] MEDS ORDERED: CALCIUM GLUCONATE INJ 1 GM in SODIUM CHLORIDE 0.9% INJ 90 ML IV ONE (10:00)
[2016-06-21] MEDS ORDERED: POTASSIUM CHLOR 40 MEQ PREMIX 100 ML IV ONE (10:00)
[2016-06-21] MEDS ORDERED: POTASSIUM CHLORIDE 20 MEQ CONTROLLED RELEASE TAB PO ONE (10:00)
[2016-06-21] MEDS: MULTIVITAMINS/MINERALS THERAPEUTIC TAB PO SCH (11:50)
[2016-06-21] MEDS: FOLIC ACID 1 MG TAB PO SCH (11:50)
[2016-06-21] MEDS: SODIUM CHLOR 0.9% 1000 ML INJ 1,000 ML IV SCH ×2 (12:02→19:32)
[2016-06-21 12:05] LABS: MAGNESIUM 1.5 MG/DL (1.5-2.5)
[2016-06-21 14:42] LABS: MAGNESIUM 1.5 MG/DL (1.5-2.5)
[2016-06-21 14:49] LABS: POTASSIUM 2.7 MEQ/L (3.5-5.1)
[2016-06-21] MEDS ORDERED: SODIUM PHOSPHATE INJ 15 MMOL in SODIUM CHLORIDE 0.9% INJ 150 ML IV ONE (16:00)
[2016-06-21] MEDS: THIAMINE HCL 100 MG TAB PO SCH (16:31)
[2016-06-21] MEDS: CYANOCOBALAMIN 1,000 MCG TAB PO SCH (16:31)
[2016-06-21] MEDS: MAGNESIUM SULFATE 1 GM PREMIX 100 ML IV SCH ×2 (16:43→18:10)
[2016-06-21] MEDS: MAGNESIUM OXIDE 400 MG TAB PO SCH (19:41)
[2016-06-21] MEDS: POTASSIUM CHLOR 10 MEQ PREMIX 100 ML IV SCH (23:16)
[2016-06-22 00:16] VITALS: BP 134/83; PULSE 68; RESP 16; TEMP 98.4; O2SAT 99
[2016-06-22] MEDS: POTASSIUM CHLOR 10 MEQ PREMIX 100 ML IV SCH ×3 (00:31→03:19)
[2016-06-22] MEDS: HEPARIN SODIUM - SQ 10,000 UNITS/ML VIAL SQ SCH ×2 (03:19→14:00)
[2016-06-22 04:12] VITALS: BP 125/76; PULSE 76; RESP 16; TEMP 98.2; O2SAT 95
[2016-06-22] MEDS: SODIUM CHLOR 0.9% 1000 ML INJ 1,000 ML IV SCH (05:32)
[2016-06-22 07:50] VITALS: BP 128/76; PULSE 79; RESP 20; TEMP 98; O2SAT 100
[2016-06-22 08:09] VITALS: O2SAT 96
[2016-06-22 08:32] VITALS: PULSE 68
[2016-06-22 08:56] LABS: HEMATOCRIT 29.1 % (35.0-46.0); MEAN CELL VOLUME 103.8 FL (80.0-100.0); MEAN CORPUSCULAR HEMOGLOBIN 36.2 PG (27.0-34.0); MEAN CORPUSCULAR HGB CONC 34.8 % (32.0-36.0); PLATELET COUNT 79 TH/MM3 (150-450); RED CELL DISTRIBUTION WIDTH 14.3 % (11.6-17.2); WHITE BLOOD COUNT 5.3 TH/MM3 (4.0-11.0)
[2016-06-22] MEDS: THIAMINE HCL 100 MG TAB PO SCH (08:57)
[2016-06-22] MEDS: MAGNESIUM OXIDE 400 MG TAB PO SCH (08:57)
[2016-06-22] MEDS: CYANOCOBALAMIN 1,000 MCG TAB PO SCH (08:57)
[2016-06-22] MEDS: FOLIC ACID 1 MG TAB PO SCH (08:57)
[2016-06-22] MEDS: PANTOPRAZOLE SOD 40 MG DELAYED RELEASE TAB PO SCH (08:57)
[2016-06-22] MEDS: MULTIVITAMINS/MINERALS THERAPEUTIC TAB PO SCH (08:57)
[2016-06-22] MEDS: SODIUM CHLORIDE 0.9% FLUSH 10 ML FLUSH IV FLUSH SCH (08:57)
[2016-06-22] MEDS ORDERED: POTASSIUM CHLORIDE 20 MEQ CONTROLLED RELEASE TAB PO SCH (09:00)
[2016-06-22 09:03] LABS: REVIEW FLAG FINAL
[2016-06-22 09:19] LABS: ALKALINE PHOSPHATASE 291 U/L (45-117); ALT (GPT) 160 U/L (10-53); ANION GAP 10 MEQ/L (5-15); AST (GOT) 385 U/L (15-37); BICARBONATE 21.8 MEQ/L (21.0-32.0); BLOOD UREA NITROGEN 2 MG/DL (7-18); CHLORIDE 109 MEQ/L (98-107); GLOMERULAR FILTRATION RATE 155 ML/MIN (>89); MAGNESIUM 1.7 MG/DL (1.5-2.5); POTASSIUM 3.5 MEQ/L (3.5-5.1); SODIUM (NA) 141 MEQ/L (136-145); TOTAL BILIRUBIN ADULT 1.4 MG/DL (0.2-1.0)
[2016-06-22 11:50] VITALS: BP 128/82; PULSE 82; RESP 20; TEMP 98.3; O2SAT 98
[2016-06-22] MEDS ORDERED: POTA20TA5 PO (11:50)
[2016-06-22] MEDS ORDERED: VITA10002 PO (11:50)
[2016-06-22] MEDS ORDERED: VITA100T2 PO (11:50)
[2016-06-22] MEDS ORDERED: THERM PO (11:50)
[2016-06-22] MEDS ORDERED: FOLI1TAB4 PO (11:50)
--- NOTE | 2016-06-22 11:51 | HHI.DCPOC ---
Discharge Care Plan Diagnosis: (1) Dehydration (2) Transaminitis (3) Alcohol abuse Goals to Promote Your Health * To prevent worsening of your condition and complications * To maintain your health at the optimal level Directions to Meet Your Goals Take your medications as prescribed Follow your dietary instruction Follow activity as directed Keep your appointments as scheduled Take your immunizations and boosters as scheduled If your symptoms worsen call your PCP, if no PCP go to Urgent Care Center or Emergency Room Smoking is Dangerous to Your Health. Avoid second hand smoke Call the 24-hour hour crisis hotline for domestic abuse at Reg Cerda MD R2 Jun 22, 2016 11:51
[2016-06-22] MEDS ORDERED: LOPE2CAP PO (12:11)
[2016-06-22] MEDS ORDERED: LOPERAMIDE HCL 2 MG CAP PO ONE (12:15)
--- NOTE | 2016-06-22 14:20 | HHI.FPPN ---
Subjective Remarks No acute events. Nausea and vomiting resolved. Had 3 episodes of diarrhea this morning. No abdominal pain. Hand cramping is resolved. Reports that she really wants to go home today, and states she feels much better. (Reg Cerda MD R2) Objective Vitals Vital Signs Date Time Temp Pulse Resp B/P Pulse Ox O2 Delivery O2 Flow Rate FiO2 06/22/16 11:50 98.3 82 20 128/82 98 06/22/16 08:32 68 06/22/16 08:09 96 21 06/22/16 07:50 98.0 79 20 128/76 100 06/22/16 04:12 98.2 76 16 125/76 95 06/22/16 00:16 98.4 68 16 134/83 99 06/21/16 20:22 97.9 73 16 129/76 99 06/21/16 20:00 73 06/21/16 16:00 98 21 06/21/16 15:50 99.1 87 20 128/90 98 I/O 06/21/16 06/21/16 06/21/16 06/22/16 06/22/16 06/22/16 07:00 15:00 23:00 07:00 15:00 23:00 Intake Total 240 ml 480 ml 2793 ml 1030 ml Balance 240 ml 480 ml 2793 ml 1030 ml Intake Oral 240 ml 480 ml 400 ml IV Total 2393 ml 1030 ml # Voids 2 5 2 # Bowel Movements 0 4 0 (Reg Cerda MD R2) Result Diagram: 06/22/16 0720 06/22/16 0720 Objective Remarks GENERAL: Sitting up in bed, no distress SKIN: No skin tenting HEENT: Normocephalic, oral mucosa moist NECK: No masses, no lymphadenopathy CARDIOVASCULAR: Regular rate and rhythm without murmurs, gallops, or rubs. Normal pulses. RESPIRATORY: Clear to auscultation. GASTROINTESTINAL: Abdomen soft, non-tender, nondistended. Normal bowel sounds. MUSCULOSKELETAL: Extremities without clubbing, cyanosis, or edema. No joint tenderness, effusion, or edema noted. No calf tenderness. NEUROLOGICAL: Awake and alert. Cranial nerves II through XII intact. Motor and sensory grossly within normal limits. (Reg Cerda MD R2) A/P Assessment and Plan Patient is a 51 year old female with history of alcohol use who presents to ED for evaluation of nausea and vomiting for the past 2 weeks, found to have significant electrolyte abnormalities and elevated liver enzymes. Discharge Planning Dehydration resolved, electrolyte imbalances resolving, tolerating PO intake. Likely discharge today with a CMP in 3 to 5 days in outpatient lab. Also will follow up with primary care physician. Advised no alcohol or tylenol use given her elevated liver enzymes. Also advised good hydration. Gave instructions on when return to hospital is warranted. (Reg Cerda MD R2) Attending Attestation Patient seen and examined. Case reviewed and discussed with the resident team. Agree with plan of care as discussed with me and documented in the resident note. (Dianne Campbell MD) Problem List: (1) Dehydration Status: Resolved Plan: Presented with significant nausea and vomiting, found to be dehydrated and have multiple electrolyte abnormalities, as well as elevated liver enzymes. Dehydration resolved and tolerating PO intake. Does have some diarrhea this morning likely from electrolyte replacements. - Encourage good oral hydration. - Will send home with daily potassium - Will send home with vitamin regimen - Advise no alcohol use as it worsens nutritional status - Will follow closely with PCP at discharge - Will get a CMP in 3 to 5 days to track electrolytes - Gave instructions on what warrants return to hospital (2) Transaminitis Status: Acute Plan: Likely related to dehydration as well as alcoholic hepatitis. AST>ALT, alcohol abuse pattern. CT shows severe steatosis. Hepatitis panel negative. Significant alcohol use, also uses OTC pain medicines more than directed including Tylenol. - Counseling on no Tylenol or alcohol use. - Recheck liver enzymes in 3 to 5 days. (3) Alcohol abuse Status: Chronic Plan: Patient with significant alcohol abuse, no signs of alcohol withdrawal in hospital. - Thiamine, folic acid, multivitamin - CIWA protocol while in hospital - Counseling on alcohol abuse (4) Tobacco abuse Status: Chronic Plan: -Smoking cessation advised -Nicotine patch (Reg Cerda MD R2) Reg Cerda MD R2 Jun 22, 2016 14:20 Dianne Campbell MD Jun 25, 2016 17:21
--- NOTE | 2016-06-22 15:36 | HHI.DS ---
Discharge Summary Admission Date Jun 20, 2016 at 13:07 Discharge Date: Jun 22, 2016 Admitting Diagnosis (1) Dehydration Diagnosis: Principal Plan: Presented with significant nausea and vomiting, found to be dehydrated and have multiple electrolyte abnormalities, as well as elevated liver enzymes. Dehydration resolved and tolerating PO intake. Does have some diarrhea this morning likely from electrolyte replacements. - Encourage good oral hydration. - Will send home with daily potassium - Will send home with vitamin regimen - Advise no alcohol use as it worsens nutritional status - Will follow closely with PCP at discharge - Will get a CMP in 3 to 5 days to track electrolytes - Gave instructions on what warrants return to hospital (2) Transaminitis Diagnosis: Principal Plan: Likely related to dehydration as well as alcoholic hepatitis. AST>ALT, alcohol abuse pattern. CT shows severe steatosis. Hepatitis panel negative. Significant alcohol use, also uses OTC pain medicines more than directed including Tylenol. - Counseling on no Tylenol or alcohol use. - Recheck liver enzymes in 3 to 5 days. (3) Alcohol abuse Diagnosis: Principal Plan: Patient with significant alcohol abuse, no signs of alcohol withdrawal in hospital. - Thiamine, folic acid, multivitamin - CIWA protocol while in hospital - Counseling on alcohol abuse (4) Tobacco abuse Diagnosis: Secondary Plan: -Smoking cessation advised -Nicotine patch Brief History Ms Purcell is a 51 year old female with history of alcohol use and peptic ulcer who presented to ED for evaluation of nausea and vomiting for the past 2 weeks. She reports that symptoms started suddenly 2 weeks ago and have progressively gotten worse. She has not been able to keep down anything including liquids. She had up to 20 episodes of bilious emesis the day prior to admission. Still has good urine output. However she has not had a BM for the past week. Today, she developed severe cramps in both her hands and calves which prompted her to go to the ED. Both of her hands were clenched and contracted prior to ED arrival. They are better now since she received the IV fluids. No associated abdominal pain, diarrhea, urinary symptoms, rash, or other symptoms. Of note, she reports having similar symptoms about a year ago. She had an EGD and colonoscopy at [facility] and was told she had a peptic ulcer. She did not follow up with anyone after that hospitalization. She does not take any PPI or antacid. In addition, she does have a significant history of alcohol use. She drinks one shot of Fireball and 1-2 beers almost every night for the past 6 months. Last drink was a couple of nights ago. She denies any history of withdrawals. She was asked about seeing GI here but declined as she had scoping about a year ago. We discussed her LFTs being up and she was advised not to take tylenol especially to excess and also alcohol as she has steatorrhea and her elevated LFTs or an acute hepatitis could be giving her the nausea and vomiting. Her hepatitis panel is pending. She feel much improved over her weakness and tetany/muscle cramping yesterday but still has multiple electrolyte abnormalities as well as the high LFTs where the AST is very much higher than the ALT. She has not been able to eat normal meals as of yet but is improving her po intake overall compared to before her hospitalization. CBC/BMP: 06/22/16 0720 06/22/16 0720 Significant Findings Laboratory Tests Test 06/20/16 06/20/16 06/21/16 06/21/16 09:48 20:00 06:01 12:50 Red Blood Count 3.68 MIL/MM3 3.00 MIL/MM3 (4.00-5.30) (4.00-5.30) Mean Corpuscular Volume 102.8 FL 103.9 FL (80.0-100.0) (80.0-100.0) Mean Corpuscular Hemoglobin 35.4 PG 35.2 PG (27.0-34.0) (27.0-34.0) Prothrombin Time 12.1 SEC (9.8-11.6) Sodium Level 134 MEQ/L (136-145) Potassium Level 3.4 MEQ/L 2.6 MEQ/L 2.7 MEQ/L (3.5-5.1) (3.5-5.1) (3.5-5.1) Chloride Level 97 MEQ/L (98-107) Carbon Dioxide Level 17.4 MEQ/L (21.0-32.0) Anion Gap 20 MEQ/L (5-15) Creatinine 1.03 MG/DL 0.42 MG/DL (0.50-1.00) (0.50-1.00) Estimat Glomerular Filtration 57 ML/MIN (>89) Rate Random Glucose 182 MG/DL (74-106) Lactic Acid Level 7.5 mmol/L (0.4-2.0) Calcium Level 8.3 MG/DL 6.9 MG/DL 7.3 MG/DL (8.5-10.1) (8.5-10.1) (8.5-10.1) Magnesium Level 1.0 MG/DL (1.5-2.5) Total Bilirubin 1.5 MG/DL 1.9 MG/DL (0.2-1.0) (0.2-1.0) Aspartate Amino Transf 506 U/L (15-37) 517 U/L (15-37) (AST/SGOT) Alanine Aminotransferase 218 U/L (10-53) 172 U/L (10-53) (ALT/SGPT) Alkaline Phosphatase 378 U/L 299 U/L (45-117) (45-117) B-Hydroxybutyrate 0.50 MMOL/L (0.00-0.39) Urine Ketones TRACE mg/dL (NEG) Hemoglobin 10.6 GM/DL (11.6-15.3) Hematocrit 31.2 % (35.0-46.0) Platelet Count 99 TH/MM3 (150-450) Lymphocytes (%) (Auto) 46.9 % (9.0-44.0) Platelet Estimate LOW (NORMAL) Target Cells 1+ (NORMAL) Blood Urea Nitrogen 3 MG/DL (7-18) Protein Corrected Calcium 7.4 MG/DL (8.5-10.1) Total Protein 6.2 GM/DL (6.4-8.2) Albumin 2.6 GM/DL (3.4-5.0) Phosphorus Level 1.8 MG/DL (2.5-4.9) Test 06/22/16 07:20 Red Blood Count 2.80 MIL/MM3 (4.00-5.30) Hemoglobin 10.1 GM/DL (11.6-15.3) Hematocrit 29.1 % (35.0-46.0) Mean Corpuscular Volume 103.8 FL (80.0-100.0) Mean Corpuscular Hemoglobin 36.2 PG (27.0-34.0) Platelet Count 79 TH/MM3 (150-450) Chloride Level 109 MEQ/L (98-107) Blood Urea Nitrogen 2 MG/DL (7-18) Creatinine 0.43 MG/DL (0.50-1.00) Calcium Level 7.6 MG/DL (8.5-10.1) Phosphorus Level 2.3 MG/DL (2.5-4.9) Total Bilirubin 1.4 MG/DL (0.2-1.0) Aspartate Amino Transf 385 U/L (15-37) (AST/SGOT) Alanine Aminotransferase 160 U/L (10-53) (ALT/SGPT) Alkaline Phosphatase 291 U/L (45-117) Total Protein 6.1 GM/DL (6.4-8.2) Albumin 2.7 GM/DL (3.4-5.0) Imaging Last 72 hours Impressions Gall Bladder Ultrasound 06/20/16 0000 Signed Impressions: Service Date/Time: Monday, June 20, 2016 15:22 - CONCLUSION: 1. Small amount of free fluid adjacent to the liver. 2. No gallstones seen. Antwan Robertson MD Abdomen/Pelvis CT 06/20/16 0000 Signed Impressions: Service Date/Time: Monday, June 20, 2016 11:34 - CONCLUSION: No acute findings. Mild sigmoid diverticula without radiographic evidence of diverticulitis. Stable severe steatosis the liver Antwan Robertson MD PE at Discharge GENERAL: Sitting up in bed, no distress SKIN: No skin tenting HEENT: Normocephalic, oral mucosa moist NECK: No masses, no lymphadenopathy CARDIOVASCULAR: Regular rate and rhythm without murmurs, gallops, or rubs. Normal pulses. RESPIRATORY: Clear to auscultation. GASTROINTESTINAL: Abdomen soft, non-tender, nondistended. Normal bowel sounds. MUSCULOSKELETAL: Extremities without clubbing, cyanosis, or edema. No joint tenderness, effusion, or edema noted. No calf tenderness. NEUROLOGICAL: Awake and alert. Cranial nerves II through XII intact. Motor and sensory grossly within normal limits. Hospital Course 51 year old female presented with intractable nausea and vomiting for several weeks, found to have severe dehydration and electrolyte disturbances. She was aggressively rehydrated with IV fluids. Electrolytes were replaced as needed, including phosphate, potassium, and magnesium. Abdominal pain, nausea, and vomiting quickly resolved. She was also found to have elevated liver enzymes. Hepatitis panel was negative. AST > ALT and a significant drinking history suggesting possible alcoholic hepatitis. Also with significant amounts of Tylenol use, may be some acetaminophen toxicity. By discharge her symptoms were well controlled and signs of dehydration resolved. She was given instructions to follow up with her primary care doctor and stay well hydrated. She was also advised not to drink alcohol or use acetaminophen due to hepatotoxicity. She will get a repeat CMP in 3 to 5 days, and was given instructions on what warrants a return to the hospital. Pt Condition on Discharge: Good Discharge Disposition: Discharge Home Discharge Instructions DIET: Follow Instructions for: As Tolerated, No Restrictions Activities you can perform: Regular-No Restrictions Follow up Referrals: PCP Follow-up - 1 Week New Orders: COMP MET PROF (CMP) - 3-5 Days New Medications: Loperamide (Loperamide) 2 Mg Cap 2 MG PO TID One capsule after each loose stool. Not to exceed 8 capsules per day. PRN DIARRHEA #20 Ref 0 CAP Cyanocobalamin (Vitamin B-12) 1,000 Mcg Tab 1000 MCG PO DAILY #30 TAB Folic Acid (Folate) 1 Mg Tab 1 MG PO DAILY #30 TAB Multiple Vitamins W/ Minerals (Thera M Plus) 1 Tab 1 TAB PO DAILY #30 TAB Potassium Chloride Microencaps (Potassium Chloride Microencaps) 20 Meq Tab 20 MEQ PO DAILY #30 TAB Thiamine (Vitamin B-1) 100 Mg Tab 100 MG PO DAILY #30 TAB Discontinued Medications: Methylprednisolone (Medrol Dosepak) 4 Mg Derek 4 MG PO DIRECTED TAKE DIRECTED #1 Ref 0 DEREK Permethrin (Elimite) 5 % Cr 60 GM TOP DIRECTED PATIENT INSTRUCTIONS: THOROUGHLY MASSAGE ELIMITE ( PERMETHRIN) 5% CREAM INTO THE SKIN FROM HEAD TO TOE COVERING ALL EXTERNAL BODY PARTS. THE CREAM SHOULD BE REMOVED BY WASHING (SHOWER OR BATH) 8 TO 14 HOURS AFTER APPLICATION. PATIENTS MAY EXPERIENCE ITCHING AFTER TREATMENT AND IS RARELY A SIGN OF TREATMENT FAILURE. #60 Ref 1 GM Reg Cerda MD R2 Jun 22, 2016 15:35
== END 2016-06-22 15:05 | disposition home or self-care (01) | DRG 683 ==
LOC: NEPE 09:15 → NEDA 13:07 → HOCA 15:38
PROVIDERS: ADMIT Family Medicine; ATTEND Family Medicine
DX: N17.9 Acute kidney failure, unspecified (principal); E87.2 Acidosis; K76.0 Fatty (change of) liver, not elsewhere classified; K57.32 Diverticulitis of large intestine without perforation or abscess without bleeding; E86.0 Dehydration; K70.10 Alcoholic hepatitis without ascites; F10.20 Alcohol dependence, uncomplicated; K27.9 Peptic ulcer, site unspecified, unspecified as acute or chronic, without hemorrhage or perforation; F17.200 Nicotine dependence, unspecified, uncomplicated; Z66 Do not resuscitate; R74.0 Nonspecific elevation of levels of transaminase and lactic acid dehydrogenase [LDH]
CPT/HCPCS: 74177; 76705; 80053; 80074; 80307; 81001; 82010; 82272; 82310; 82550; 83605; 83690; 83735; 83970; 84100; 84132; 85025; 85027; 85610; 85730; 96374; 96375; J0610; J1644; J2060; J2405; J3475; J3480; J7030; Q9967

== ENCOUNTER 2017-06-26 01:01 | Emergency (ER) | payer SELFPAY ==
[~2017-06-26 01:01] MED LIST changes: +FOLI1TAB4 PO; +LOPE2CAP PO; -MEDR4PAK3 PO; -PERM5CRE TOP; +POTA20TA5 PO; +THERM PO; +VITA10002 PO; +VITA100T2 PO
[2017-06-26 01:10] VITALS: BP 137/93; PULSE 125; RESP 17; TEMP 98.4; O2SAT 95
--- NOTE | 2017-06-26 01:20 | PD ---
HPI Chief Complaint: Injury Time Seen by Provider: 01:15 Travel History International Travel<30 days: No Contact w/Intl Traveler<30days: No Traveled to known affect area: No History of Present Illness HPI 52-year-old female who is right-handed presents emergency department for evaluation of left wrist injury sustained yesterday, approximately 12 hours ago , while she was sleeping when she slipped and fell, bracing her fall on an outstretched left upper extremity. She experienced immediate pain. Over the course the last 12 hours the pain has gotten worse, the risks become more swollen, she rates the pain a 10 out of 10. She did not strike her head or lose consciousness. She denies any alterations in sensation. She is unable to move the wrist without significant pain. No other symptoms to report. PFSH Past Medical History Hx Anticoagulant Therapy: Yes (takes excess ibuprof and aleve) Autoimmune Disease: No Depression: Yes Cancer: Yes (EARLY STAGES OF CERVICAL CANCER YEARS AGO. ) Chemotherapy: No Diabetes: No Diminished Hearing: No Endocrine: No Immune Disorder: No Insomnia: Yes Musculoskeletal: Yes (CHRONIC BACK PAIN) Psychiatric: No Immunizations Current: No Radiation Therapy: No Thyroid Disease: No Past Surgical History Abdominal Surgery: Yes (LAPAROSCOPY X 3(LAST ONE 2002)) AICD: No Arteriovenous Shunt: No Hysterectomy: Yes Insulin Pump: No Joint Replacement: No Pacemaker: No Other Surgery: Yes (LAPAROSCOPY X 3-CERVIX) Social History Alcohol Use: Yes (3-5 BEERS/DAY) Tobacco Use: Yes (1 ppd) Substance Use: No Allergies-Medications (Allergen,Severity, Reaction): Coded Allergies: amoxicillin (Unverified Allergy, Severe, VOMITING, 06/26/17) clavulanic acid (Unverified Allergy, Severe, VOMITING, 06/26/17) hydrocodone (Unverified Allergy, Mild, 06/26/17) PREFERS NOT TO TAKE HYDROCODONE. NO REACTION ALLERGICALLY. Reported Meds & Prescriptions Reported Meds & Active Scripts Active Percocet (Oxycodone-Acetaminophen) 5-325 mg Tab 1 Tab PO Q6H PRN Ibuprofen 600 Mg Tab 600 Mg PO Q8HR PRN Vitamin B-12 (Cyanocobalamin) 1,000 Mcg Tab 1,000 Mcg PO DAILY Review of Systems Except as stated in HPI: all other systems reviewed are Neg Physical Exam Narrative GENERAL: Well-nourished female patient, ambulatory no acute distress. SKIN: Focused skin assessment warm/dry. HEAD: Atraumatic. Normocephalic. EYES: Pupils equal and round. No scleral icterus. No injection or drainage. ENT: No nasal bleeding or discharge. Mucous membranes pink and moist. NECK: Trachea midline. No JVD. CARDIOVASCULAR: Regular rate and rhythm. No murmur appreciated. RESPIRATORY: No accessory muscle use. Clear to auscultation. Breath sounds equal bilaterally. GASTROINTESTINAL: Abdomen soft, non-tender, nondistended. Hepatic and splenic margins not palpable. EXTREMITY: There is swelling and tenderness of the left distal forearm and wrist. There is an obvious deformity. The skin is intact. Flexion and extension of the fingers is normal. The fingers are warm and well perfused. Sensation to light touch is intact in the hand. NEUROLOGICAL: Awake and alert. No obvious cranial nerve deficits. Motor grossly within normal limits. Normal speech. PSYCHIATRIC: Appropriate mood and affect; insight and judgment normal. Data Data Last Documented VS Vital Signs Date Time Temp Pulse Resp B/P (MAP) Pulse Ox O2 Delivery O2 Flow Rate FiO2 06/26/17 02:48 06/26/17 02:03 119 20 96 Room Air 06/26/17 01:10 98.4 Orders Orders Wrist, Complete (Dzr1ron) (06/26/17 ) Iv Access Insert/Monitor (06/26/17 01:17) Complete Blood Count With Diff (06/26/17 01:17) Basic Metabolic Panel (Bmp) (06/26/17 01:17) Coag Profile (06/26/17 01:17) Morphine Inj (Morphine Inj) (06/26/17 01:30) Ondansetron Inj (Zofran Inj) (06/26/17 01:30) Morphine Inj (Morphine Inj) (06/26/17 02:15) Splint Or Brace Apply/Monitor (06/26/17 02:10) Ed Discharge Order (06/26/17 02:18) Oxycodone-Acetamin 5-325 Mg (Percocet (06/26/17 02:45) Fiberglass Sugartong Sp Ad Arm (06/26/17 ) Sling Cradle Arm (06/26/17 ) Labs Laboratory Tests Test 06/26/17 01:30 White Blood Count 12.9 TH/MM3 Red Blood Count 3.61 MIL/MM3 Hemoglobin 14.1 GM/DL Hematocrit 39.7 % Mean Corpuscular Volume 109.9 FL Mean Corpuscular Hemoglobin 39.0 PG Mean Corpuscular Hemoglobin Concent 35.5 % Red Cell Distribution Width 14.4 % Platelet Count 386 TH/MM3 Mean Platelet Volume 7.5 FL Neutrophils (%) (Auto) 50.1 % Lymphocytes (%) (Auto) 41.5 % Monocytes (%) (Auto) 7.1 % Eosinophils (%) (Auto) 0.4 % Basophils (%) (Auto) 0.9 % Neutrophils # (Auto) 6.5 TH/MM3 Lymphocytes # (Auto) 5.3 TH/MM3 Monocytes # (Auto) 0.9 TH/MM3 Eosinophils # (Auto) 0.1 TH/MM3 Basophils # (Auto) 0.1 TH/MM3 CBC Comment AUTO DIFF Differential Total Cells Counted 100 Neutrophils % (Manual) 45 % Lymphocytes % 48 % Monocytes % 5 % Basophils % 2 % Neutrophils # (Manual) 5.8 TH/MM3 Differential Comment FINAL DIFF MANUAL Platelet Estimate NORMAL Platelet Morphology Comment NORMAL Prothrombin Time 10.4 SEC Prothromb Time International Ratio 1.0 RATIO Activated Partial Thromboplast Time 26.0 SEC Blood Urea Nitrogen 7 MG/DL Creatinine 0.73 MG/DL Random Glucose 122 MG/DL Calcium Level 9.4 MG/DL Sodium Level 138 MEQ/L Potassium Level 4.2 MEQ/L Chloride Level 103 MEQ/L Carbon Dioxide Level 20.7 MEQ/L Anion Gap 14 MEQ/L Estimat Glomerular Filtration Rate 84 ML/MIN [facility] Medical Decision Making Medical Screen Exam Complete: Yes Emergency Medical Condition: Yes Medical Record Reviewed: Yes Differential Diagnosis Fracture versus sprain versus dislocation versus contusion Narrative Course 52-year-old female presents emergency department for evaluation of left wrist injury. Patient has obvious deformity of the left wrist. It remains neurovascularly intact. X-ray imaging confirms a mildly displaced Colles' fracture of the left wrist. Patient has been treated with pain control. I discussed patient with my attending physician. A sugar tong splint is placed. Patient is instructed to follow-up with orthopedic surgery. She agrees to return immediately with acute worsening symptoms. Last Impressions Wrist X-Ray 06/26/17 0000 Signed Impressions: Service Date/Time: Monday, June 26, 2017 01:31 - CONCLUSION: 1. Mildly displaced Colles' fracture left wrist. Luis Storey MD Laboratory Tests Test 06/26/17 01:30 White Blood Count 12.9 TH/MM3 Red Blood Count 3.61 MIL/MM3 Hemoglobin 14.1 GM/DL Hematocrit 39.7 % Mean Corpuscular Volume 109.9 FL Mean Corpuscular Hemoglobin 39.0 PG Mean Corpuscular Hemoglobin Concent 35.5 % Red Cell Distribution Width 14.4 % Platelet Count 386 TH/MM3 Mean Platelet Volume 7.5 FL Neutrophils (%) (Auto) 50.1 % Lymphocytes (%) (Auto) 41.5 % Monocytes (%) (Auto) 7.1 % Eosinophils (%) (Auto) 0.4 % Basophils (%) (Auto) 0.9 % Neutrophils # (Auto) 6.5 TH/MM3 Lymphocytes # (Auto) 5.3 TH/MM3 Monocytes # (Auto) 0.9 TH/MM3 Eosinophils # (Auto) 0.1 TH/MM3 Basophils # (Auto) 0.1 TH/MM3 CBC Comment AUTO DIFF Differential Total Cells Counted 100 Neutrophils % (Manual) 45 % Lymphocytes % 48 % Monocytes % 5 % Basophils % 2 % Neutrophils # (Manual) 5.8 TH/MM3 Differential Comment FINAL DIFF MANUAL Platelet Estimate NORMAL Platelet Morphology Comment NORMAL Prothrombin Time 10.4 SEC Prothromb Time International Ratio 1.0 RATIO Activated Partial Thromboplast Time 26.0 SEC Blood Urea Nitrogen 7 MG/DL Creatinine 0.73 MG/DL Random Glucose 122 MG/DL Calcium Level 9.4 MG/DL Sodium Level 138 MEQ/L Potassium Level 4.2 MEQ/L Chloride Level 103 MEQ/L Carbon Dioxide Level 20.7 MEQ/L Anion Gap 14 MEQ/L Estimat Glomerular Filtration Rate 84 ML/MIN Diagnosis Primary Impression: Colles' fracture of left radius, initial encounter for closed fracture Referrals: Ishmael Diaz MD Orthopaedic Surgeon Primary Care Physician Patient Instructions: General Instructions, Wrist Fracture in Adults (ED) Additional Instructions: Ice and elevate to reduce pain and swelling Follow-up with a primary care provider Seek orthopedic evaluation within the next 3-5 days. Call to make an appointment Do not remove your splint Do not get it wet Return immediately with acute worsening symptoms Med/Other Pt SpecificInfo: Prescription(s) given Scripts Oxycodone-Acetaminophen (Percocet) 5-325 mg Tab 1 TAB PO Q6H Y for PAIN GREATER THAN 6, #12 TAB 0 Refills Prov: Juanita Wilcox 06/26/17 Ibuprofen (Ibuprofen) 600 Mg Tab 600 MG PO Q8HR Y for PAIN, #30 TAB 0 Refills Prov: Juanita Wilcxo 06/26/17 Disposition: 01 DISCHARGE HOME Condition: Stable Juanita Wilcox Jun 26, 2017 01:20
[2017-06-26] MEDS ORDERED: ONDANSETRON HCL 4 MG/2 ML VIAL IV PUSH ONE (01:30)
[2017-06-26] MEDS ORDERED: MORPHINE SULFATE 2 MG/ML SYRINGE IV PUSH ONE ×2 (01:30→02:15)
[2017-06-26 01:41] LABS: AUTOMATED NEUTROPHIL # 6.5 TH/MM3 (1.8-7.7); BASOPHIL # 0.1 TH/MM3 (0-0.2); BASOPHIL % 0.9 % (0.0-2.0); EOSINOPHIL # 0.1 TH/MM3 (0-0.4); EOSINOPHIL % 0.4 % (0.0-4.0); HEMATOCRIT 39.7 % (35.0-46.0); HEMOGLOBIN 14.1 GM/DL (11.6-15.3); LYMPH % 41.5 % (9.0-44.0); LYMPHOCYTE # 5.3 TH/MM3 (1.0-4.8); MEAN CELL VOLUME 109.9 FL (80.0-100.0); MEAN CORPUSCULAR HGB CONC 35.5 % (32.0-36.0); MEAN PLATELET VOLUME 7.5 FL (7.0-11.0); MONO % 7.1 % (0.0-8.0); MONOCYTE # 0.9 TH/MM3 (0-0.9); NEUT % 50.1 % (16.0-70.0); PLATELET COUNT 386 TH/MM3 (150-450); RED BLOOD COUNT 3.61 MIL/MM3 (4.00-5.30); RED CELL DISTRIBUTION WIDTH 14.4 % (11.6-17.2); WHITE BLOOD COUNT 12.9 TH/MM3 (4.0-11.0)
--- NOTE | 2017-06-26 01:48 | RADRPT ---
EXAM DATE/TIME: 06/26/2017 01:31 [facility] COMPARISON: No previous studies available for comparison. INDICATIONS : Fall, wrist pain. MEDICAL HISTORY : None. SURGICAL HISTORY : None. ENCOUNTER: Initial ACUITY: 1 day PAIN SCORE: 7/10 LOCATION: Left wrist FINDINGS: There is a mildly displaced distal radius fracture and ulnar styloid fracture. No dislocation. There is overlying soft tissue swelling. CONCLUSION: 1. Mildly displaced Colles' fracture left wrist. Luis Storey MD on June 26, 2017 at 1:46 Board Certified Radiologist. This report was verified electronically.
[2017-06-26 01:52] LABS: PROTHROMBIN TIME - PATIENT 10.4 SEC (9.8-11.6)
[2017-06-26 01:53] LABS: BICARBONATE 20.7 MEQ/L (21.0-32.0); CALCIUM 9.4 MG/DL (8.5-10.1); CREATININE 0.73 MG/DL (0.50-1.00)
[2017-06-26 02:03] VITALS: BP 119/90; PULSE 119; RESP 20; O2SAT 96
[2017-06-26] MEDS ORDERED: PERC5TAB12 PO (02:21)
[2017-06-26] MEDS ORDERED: IBUP-232 PO (02:21)
[2017-06-26 02:34] LABS: BASOPHILS 2 % (0-2); LYMPHOCYTES 48 % (9-44); MONOCYTES 5 % (0-8); NEUTROPHIL # MANUAL DIFF 5.8 TH/MM3 (1.8-7.7); POLYS (SEG NEUTROPHILS) 45 % (16-70)
[2017-06-26] MEDS ORDERED: oxyCODONE/ACETAMINOPHEN 5 MG/325 MG TAB PO ONE (02:45)
== END 2017-06-26 02:50 | disposition home or self-care (01) ==
LOC: NEPD 01:01
DX: S52.532A Colles' fracture of left radius, initial encounter for closed fracture (principal); F17.200 Nicotine dependence, unspecified, uncomplicated; W01.0XXA Fall on same level from slipping, tripping and stumbling without subsequent striking against object, initial encounter
CPT/HCPCS: 29125; 73110; 80048; 85007; 85027; 85610; 85730; 96374; 96375; 96376; 99284; J2270; J2405